=== PATIENT | female | born 1975 | race Caucasian/White ===

== ENCOUNTER 2022-05-21 13:07 | Outpatient (CLI) | payer OTHER, SELFPAY | END 2022-05-21 13:08 | disposition home or self-care (01) | LOC: LKVREF 05-25 09:59 | PROVIDERS: Visit Provider Nurse Practitioner Family | DX: R30.0 Dysuria (principal); N30.90 Cystitis, unspecified without hematuria | CPT/HCPCS: 87086; 87186 ==